=== PATIENT | male | born 1990 | race African-American/Black ===

== ENCOUNTER 2019-05-13 16:47 | Emergency (ER) | payer SELFPAY ==
[2019-05-13] MEDS ORDERED: LIDOCAINE 1% INJ-PF (10 MG/ML) 30 ML SDV INJ ONE (17:08)
--- NOTE | 2019-05-13 17:10 | ER Document Report ---
ED Medical Screen (RME) - General Chief Complaint: Abscess Stated Complaint: ABCESS Time Seen by Provider: 05/13/19 17:07 TRAVEL OUTSIDE OF THE [place] IN LAST 30 DAYS: No - HPI Notes: 05/13/19 17:08 Patient is a 28-year-old male no significant past medical history who presents complaining of abscess to his right inguinal area x3 days that he believes he strained. Patient states that he had an incision and drainage performed in the same area previously. No history of MRSA. He is otherwise feeling well. Denies drug allergies. Denies FISCHER, fever, neck pain, URI, CP, SOB, Abd pain, dysuria, back pain. I have treated and performed a rapid initial assessment of this patient. A comprehensive ED assessment and evaluation of the patient, analysis of test results and completion of medical decision making process will be conducted by additional ED providers. PHYSICAL EXAMINATION: GENERAL: Well-appearing, well-nourished and in no acute distress. A&Ox4. Answers questions appropriately. Skin: + fluctuant, erythemic, tender abscess rt inguinal area. - Related Data Allergies/Adverse Reactions: No Known Allergies Allergy (Verified 05/13/19 16:48) Physical Exam - Vital signs Vitals: Temp Pulse Resp BP Pulse Ox 98.1 F 105 H 18 154/93 H 97 05/13/19 16:52 05/13/19 16:52 05/13/19 16:52 05/13/19 16:52 05/13/19 16:52 Course - Vital Signs Vital signs: Temp Pulse Resp BP Pulse Ox 98.1 F 105 H 18 154/93 H 97 05/13/19 16:52 05/13/19 16:52 05/13/19 16:52 05/13/19 16:52 05/13/19 16:52
[2019-05-13] MEDS ORDERED: OXYCODONE-ACETAMINOPHEN 5-325 MG TABLET PO ONE (17:53)
--- NOTE | 2019-05-13 17:56 | ER Document Report ---
ED Skin Rash/Insect Bite/Abscs - General Chief Complaint: Abscess Stated Complaint: ABCESS Time Seen by Provider: 05/13/19 17:07 Notes: Patient is a 28-year-old male presents to the emergency department with a chief complaint of abscess to the right groin. Patient states that he noticed the abscess about 3 days ago. Patient states he has had an abscess in the same area years ago in which she did have it incised and drained. Patient states there has been no drainage from the area. Patient reports it is extremely tender to touch. Patient denies penile or testicular swelling. Patient denies fever or joint pain. Patient denies any other abscesses. Patient denies a history of MRSA. TRAVEL OUTSIDE OF THE [place] IN LAST 30 DAYS: No - Related Data Allergies/Adverse Reactions: No Known Allergies Allergy (Verified 05/13/19 16:48) Past Medical History - General Information source: Patient - Social History Smoking Status: Current Every Day Smoker Cigarette use (# per day): Yes - 1/2 ppd Smoking Education Provided: Yes Frequency of alcohol use: Social Drug Abuse: Marijuana - Occasionally Lives with: Spouse/Significant other Family History: None Review of Systems - Review of Systems Constitutional: No symptoms reported EENT: No symptoms reported Cardiovascular: No symptoms reported Respiratory: No symptoms reported Gastrointestinal: No symptoms reported Genitourinary: No symptoms reported Male Genitourinary: No symptoms reported Musculoskeletal: No symptoms reported Skin: See HPI Hematologic/Lymphatic: No symptoms reported Neurological/Psychological: No symptoms reported Physical Exam - Vital signs Vitals: Temp Pulse Resp BP Pulse Ox 98.1 F 105 H 18 154/93 H 97 05/13/19 16:52 05/13/19 16:52 05/13/19 16:52 05/13/19 16:52 05/13/19 16:52 - Notes Notes: GENERAL: Well-appearing, well-nourished and in no acute distress. HEAD: Atraumatic, normocephalic. EYES: Pupils equal round and reactive to light, extraocular movements intact, sclera anicteric, conjunctiva are normal. ENT: Nares patent, oropharynx clear without exudates. Moist mucous membranes. NECK: Normal range of motion, supple without lymphadenopathy or JVD. LUNGS: Breath sounds clear to auscultation bilaterally and equal. No wheezes rales or rhonchi. HEART: Regular rate and rhythm without murmurs, rubs or gallops. ABDOMEN: Soft, nontender, normoactive bowel sounds. No guarding, no rebound. No masses appreciated. BACK: No cervical, thoracic, lumbar midline tenderness. No saddle anesthesia, normal distal neurovascular exam. GENITOURINARY: Deferred. EXTREMITIES: Normal range of motion, no pitting or edema. No clubbing or cyanosis. NEUROLOGICAL: Cranial nerves II through XII grossly intact. Normal speech, normal gait. PSYCH: Normal mood, normal affect. SKIN: Warm, Dry, [id number] abscess noted to the right groin, no drainage, the abscess does appear to have a small amount of surrounding cellulititis. No involvement of the testes or penis. Course - Re-evaluation Re-evalutation: 05/13/19 19:59 Patient was educated on smoking cessation and wound care. - Vital Signs Vital signs: Temp Pulse Resp BP Pulse Ox 99.0 F 95 16 130/80 H 97 05/13/19 19:54 05/13/19 19:54 05/13/19 19:54 05/13/19 19:54 05/13/19 19:54 Procedures - Incision and Drainage Right Groin Time completed: 19:00 Type: Simple Anesthetic type: 1% Lidocaine mL's of anesthetic: 6 Blade size: 11 I&D procedure: Betadine prep applied Incision Method: Incision made by scalpel Notes: 05/13/19 19:56 Large amount of purulent drainage was removed from the abscess. Patient tolerated the procedure well. I investigated the wound and irrigated with saline. I did not find any additional pockets that needed to be drained. Patient was placed with a gauze dressing to the site. Discharge - Discharge Clinical Impression: Abscess Condition: Stable Disposition: HOME, SELF-CARE Instructions: Abscess ([facility]) Additional Instructions: Today you were seen in the emergency department for an abscess to the right groin. The abscess was numbed with lidocaine and opened. This did reveal a large amount of purulent drainage. Please take the antibiotics as prescribed. The wound did not have to be packed. You do have a small incision that we will continue to drain over the next few days. The small incision will leave a tiny scar but will heal over the next 1 to 2 weeks. Please use the gauze that was given to you at discharge to apply over the area. Please keep the area clean and dry as much as possible. Please use warm compresses to the site. Please return to the emergency department if you develop fever, chills, worsening pain or increasing swelling to the area. It is extremely important to return if your symptoms worsen as the abscess was located around vital organs. Please return to the emergency department if you develop penile swelling, testicular pain or swelling or if you notice that the redness is streaking up and down your leg or into your genitals. Take Tylenol and ibuprofen as needed for pain. Abscess You have an abscess (boil). This a pus-forming infection, usually due to staph. Some boils may be left to drain on their own, but most require lancing. From the time the tender lump first appears, it may be three or four days before the abscess is ready to nicol. Local heat and rest help at this stage of treatment. An antibiotic may prevent spread of the infection. Once the abscess is opened, packing may be placed into it. This is done so pus is not sealed inside by premature closure of the cavity. The packing will be removed at your follow-up visit or you may be advised to remove it yourself at home. Sometimes this packing must be replaced a few times during healing. The wound will heal with surprisingly little scar. Depending on the size and location of an abscess, healing can take one to four weeks. You may shower and wash the area around the incision site two or three times a day. Antibiotics may be prescribed, but are usually not necessary after an abscess has been drained. If you develop fever, chilling, worsening pain, or increasing swelling in the area, call the doctor or return immediately. Prescriptions: Clindamycin HCl [Cleocin HCl] 450 mg PO TID 7 Days #63 capsule
[2019-05-13] MEDS ORDERED: CLINDAMYCIN HCL 150 MG CAPSULE PO ONE (19:29)
[2019-05-13 19:55] VITALS: BP 130/80
== END 2019-05-13 20:09 | disposition home or self-care (01) ==
LOC: ER 16:47
PROC: 0H97XZZ Drainage of Abdomen Skin, External Approach (ICD-10-PCS; principal; 2019-05-13)
DX: L02.214 Cutaneous abscess of groin (principal); F17.210 Nicotine dependence, cigarettes, uncomplicated
CPT/HCPCS: 99282; 10060; J3490; A6266